=== PATIENT | female | born 1985 | race Caucasian/White ===

== ENCOUNTER → 2018-11-21 | Outpatient (CLI) | payer MEDICAID ==
[2018-11-21 12:48] LABS: BASO # 0.1 10^3/uL (0.0-0.2); BASO % 0.7 % (0.0-1.0); EOS # 0.2 10^3/uL (0.0-0.5); EOS % 2.9 % (0.0-3.0); HEMATOCRIT 33.8 % (36.0-47.0); LYMPH # 2.6 10^3/uL (1.5-5.0); LYMPH % 35.2 % (24.0-44.0); MEAN CORPUSCULAR HEMOGLOBIN 31.6 pg (27.0-33.0); MEAN CORPUSCULAR HGB CONC 35.5 g/dl (32.0-36.5); MEAN CORPUSCULAR VOLUME 88.9 fl (80.0-96.0); MONO # 0.5 10^3/uL (0.0-0.8); MONO % 7.4 % (0.0-5.0); NEUTROPHILS # 3.9 10^3/uL (1.5-8.5); NEUTROPHILS % 53.2 % (36.0-66.0); PLATELET COUNT, AUTOMATED 177 10^3/uL (150-450); WHITE BLOOD COUNT 7.3 10^3/uL (4.0-10.0)
[2018-11-21 12:50] LABS: AMORPHOUS SEDIMENT MODERATE (NEGATIVE); APPEARANCE, URINE CLOUDY (CLEAR); BACTERIA, URINE AUTO NEGATIVE (NEGATIVE); BILIRUBIN, URINE AUTO NEGATIVE (NEGATIVE); BLOOD, URINE BLOOD NEGATIVE (NEGATIVE); COLOR, URINE YELLOW (YELLOW); GLUCOSE, URINE (UA) AUTO NEGATIVE (NEGATIVE); KETONE, URINE AUTO NEGATIVE (NEGATIVE); LEUKOCYTE ESTERASE, URINE AUTO NEGATIVE (NEGATIVE); NITRITE, URINE AUTO NEGATIVE (NEGATIVE); PROTEIN, URINE AUTO NEGATIVE (NEGATIVE); RBC, URINE AUTO 0 /HPF (0-3); SQUAMOUS EPITHELIAL CELL UR AU 1 /HPF (0-6); UROBILINOGEN, URINE AUTO 0.2 mg/dL (0.0-2.0); WBC, URINE AUTO 1 /HPF (0-3)
[2018-11-21 13:35] LABS: ALBUMIN 3.3 GM/DL (3.2-5.2); ALT/SGPT 46 U/L (12-78); BILIRUBIN,TOTAL 0.3 MG/DL (0.2-1.0); BLOOD UREA NITROGEN 9 MG/DL (7-18); CALCIUM LEVEL 8.9 MG/DL (8.5-10.1); CARBON DIOXIDE LEVEL 23 MEQ/L (21-32); CHLORIDE LEVEL 106 MEQ/L (98-107); CREATININE FOR GFR 0.54 MG/DL (0.55-1.30); GLOMERULAR FILTRATION RATE > 60.0 (>60); GLUCOSE, FASTING 73 MG/DL (70-100); POTASSIUM SERUM 4.1 MEQ/L (3.5-5.1); SODIUM LEVEL 138 MEQ/L (136-145); TOTAL PROTEIN 6.5 GM/DL (6.4-8.2)
[2018-11-21 13:47] LABS: HEPATITIS B SURFACE ANTIBODY POSITIVE (POSITIVE)
[2018-11-21 13:57] LABS: HEPATITIS B SURFACE ANTIGEN NEGATIVE (NEGATIVE)
[2018-11-27 14:07] LABS: HEPATITIS A IgG TOTAL Negative (Negative); HEPATITIS C QUANTITATION 2807640 IU/mL (.); HEPATITIS C VIRUS GENOTYPE See Final Results (.)
== END ==
LOC: M LAB 11:34
PROVIDERS: ATTEND Physician Assistant Medical
DX: Z02.2 Encounter for examination for admission to residential institution (principal); B18.2 Chronic viral hepatitis C; B16.9 Acute hepatitis B without delta-agent and without hepatic coma

== ENCOUNTER → 2018-12-01 | Outpatient (REF) | payer OTHER, MEDICAID | LOC: M LAB REF 13:06 | PROVIDERS: ATTEND Advanced Practice Midwife | DX: Z34.82 Encounter for supervision of other normal pregnancy, second trimester (principal) ==

== ENCOUNTER → 2018-12-15 | Outpatient (CLI) | payer MEDICAID, OTHER ==
[2018-12-15 10:35] LABS: ALBUMIN 2.8 GM/DL (3.2-5.2); ALT/SGPT 30 U/L (12-78); BILIRUBIN,TOTAL 0.3 MG/DL (0.2-1.0); BLOOD UREA NITROGEN 13 MG/DL (7-18); CALCIUM LEVEL 8.3 MG/DL (8.5-10.1); CARBON DIOXIDE LEVEL 24 MEQ/L (21-32); CHLORIDE LEVEL 107 MEQ/L (98-107); CREATININE FOR GFR 0.56 MG/DL (0.55-1.30); GLOMERULAR FILTRATION RATE > 60.0 (>60); GLUCOSE, FASTING 107 MG/DL (70-100); POTASSIUM SERUM 3.9 MEQ/L (3.5-5.1); SODIUM LEVEL 139 MEQ/L (136-145); TOTAL PROTEIN 6.1 GM/DL (6.4-8.2)
[2018-12-15 11:12] LABS: HEPATITIS B SURFACE ANTIBODY POSITIVE (POSITIVE)
--- NOTE | 2018-12-15 11:34 | REP ---
OB ULTRASOUND: Real-time sonographic evaluation of the gravid uterus performed. There is a single living intrauterine gestation with an estimated gestational age 21 weeks 5 days with EDC 04/22/2019. Today's measurements indicate appropriate growth. Biometry and Growth: BPD 54 mm = 22 weeks 2 days, 65th percentile HC 191 mm = 21 weeks 2 days, 39th percentile AC 174 mm = 22 weeks 2 days, 64th percentile FL 38 mm = 22 weeks 1 day, 59th percentile HC/AC ratio 1.10 within normal range. Estimated weight 479 grams 60th percentile. SEEN/GROSSLY UNREMARKABLE Lateral ventricles Yes Posterior fossa Yes Upper lip No Four-chamber heart No LVOT No RVOT No Stomach Yes Cord insertion Yes Three vessel cord Yes Kidneys Yes Bladder Yes Spine Yes Cervical length: Closed and measures 4 cm in length. heart rate: 141 beats per minute. position: Variable. Placenta: Posterior and grade 0 with no previa or abruption. Amniotic fluid: Within normal limits. Electronically Signed by Nikko Harvey MD 12/15/2018 11:30 P
[2018-12-26 00:07] LABS: HEPATITIS A IgG TOTAL Negative (Negative); HEPATITIS B CORE ANTIBODY IGG Negative (Negative); HEPATITIS C QUANTITATION 3737770 IU/mL (.); HEPATITIS C VIRUS GENOTYPE See Final Results (.)
== END ==
LOC: M RAD 09:00
PROVIDERS: ATTEND Advanced Practice Midwife
DX: Z34.82 Encounter for supervision of other normal pregnancy, second trimester (principal)

== ENCOUNTER → 2019-01-13 | Outpatient (CLI) | payer MEDICAID, OTHER ==
--- NOTE | 2019-01-13 09:52 | REP ---
Obstetric ultrasound for anatomy follow-up: Comparison is dated 09/27/2018. On the comparison study the facial features, four-chamber view of the heart and cardiac right and left ventricular outflow tracts were suboptimally demonstrated because of position. On the study today the facial profile, upper lip and face are adequately demonstrated and are unremarkable. On the study today the four-chamber view of the heart and cardiac left ventricular outflow tract are adequately demonstrated and unremarkable. The cardiac right ventricular outflow tract is again suboptimally demonstrated because of position. An additional followup study dedicated to this structure might be considered. The remainder of the anatomy indicates that the choroid plexus, cerebellum and spine are suboptimally demonstrated today but were adequately demonstrated previously and were unremarkable previously. There is a single intrauterine gestation in an oblique breech presentation with the head toward the maternal right. There is motion and cardiac activity. The heart rate is 131 beats per minute. The placenta is posterior. There is no placenta previa or abruptio. The placenta is grade zero. The amniotic fluid volume subjectively is normal. The cervix measures 4.0 cm. Gestational age by the ultrasound today is 26 weeks 3 days/FATUMA 04/18/2019. Gestational age by the first ultrasound is 26 weeks 1 day/FATUMA 04/20/2019. Gestational age by LMP is 25-week 6 days/FATUMA 04/22/2011. weight is 994 grams/2 pounds, 3 ounces. This is the 70th percentile for 25 weeks 6 days. Electronically Signed by Nikko Levine MD 01/13/2019 09:43 A
[2019-01-13 11:14] LABS: HEMATOCRIT 32.6 % (36.0-47.0); HEMOGLOBIN 11.2 g/dl (12.0-15.5); MEAN CORPUSCULAR HGB CONC 34.4 g/dl (32.0-36.5); MEAN CORPUSCULAR VOLUME 90.3 fl (80.0-96.0); PLATELET COUNT, AUTOMATED 174 10^3/uL (150-450); RED BLOOD COUNT 3.61 10^6/uL (4.00-5.40); WHITE BLOOD COUNT 8.2 10^3/uL (4.0-10.0)
== END ==
LOC: M RAD 08:30
PROVIDERS: ATTEND Advanced Practice Midwife
DX: O34.219 Maternal care for unspecified type scar from previous cesarean delivery (principal); Z3A.26 26 weeks gestation of pregnancy

== ENCOUNTER → 2019-02-24 | Outpatient (CLI) | payer OTHER ==
[2019-02-24 18:30] LABS: HEMATOCRIT 34.6 % (36.0-47.0); HEMOGLOBIN 11.9 g/dl (12.0-15.5); MEAN CORPUSCULAR HEMOGLOBIN 30.7 pg (27.0-33.0); MEAN CORPUSCULAR HGB CONC 34.4 g/dl (32.0-36.5); MEAN CORPUSCULAR VOLUME 89.4 fl (80.0-96.0); PLATELET COUNT, AUTOMATED 201 10^3/uL (150-450); RED BLOOD COUNT 3.87 10^6/uL (4.00-5.40); WHITE BLOOD COUNT 11.4 10^3/uL (4.0-10.0)
[2019-02-24 19:05] LABS: ALBUMIN 2.6 GM/DL (3.2-5.2); ALT/SGPT 29 U/L (12-78); AMYLASE 32 U/L (25-115); BILIRUBIN,DIRECT < 0.1 MG/DL (0.0-0.2); BILIRUBIN,TOTAL 0.2 MG/DL (0.2-1.0); LIPASE 77 U/L (73-393); TOTAL PROTEIN 6.3 GM/DL (6.4-8.2)
== END ==
LOC: M PLALAB 14:40
PROVIDERS: ATTEND Advanced Practice Midwife
DX: L28.2 Other prurigo (principal)

== ENCOUNTER 2019-03-23 10:45 | Outpatient (CLI) | payer MEDICAID, OTHER ==
[~2019-03-23] VITALS: Ht 160 cm; Wt 105.6 kg
[~2019-03-23 10:45] MED LIST changes: -ACET1TAB55 PO; -ZOFR8TAB24 PO
[2019-03-23] MEDS ORDERED: ZOFR8TAB24 PO (11:03)
[2019-03-23 11:06] VITALS: BP 128/68
[2019-03-23] MEDS ORDERED: BETAMETHASONE SOLUSPAN 6MG/ML INJ 5ML (J0702) IM ONE (11:45)
[2019-03-23 12:36] VITALS: BP 121/73
--- NOTE | 2019-03-23 17:47 | IPNPDOC ---
Text Note Date of Service The patient was seen on 03/23/19. NOTE Subjective: Patient is a 33-year old female who is a 36.1 weeks gestation with an FATUMA of 04/19/19 based off of her LMP and consistent with her first trimester ultrasound. Her has been complicated by 2 prior sections. With her last section she was found to have a uterine window. The plan is to do a repeat section at 37 weeks. The patient was sent over from the office to get Betamethasone injections prior to her scheduled section. Objective: FHR: 120, moderate variability, positive accelerations, no decelerations. Contractions: none. Assessment: IUP at 36.1 weeks gestation, maternal care for prior low transverse section with uterine window, Category I FHR tracing. Plan: Betamethasone injection given. Patient to return in 24 hours for repeat injection. She is to call with any changes including labor signs, decreased movements, leaking of fluid, or other danger signs. VS,Fishbone, I+O VS, Fishbone, I+O Vital Signs Date Time Temp Pulse Resp B/P (MAP) Pulse Ox O2 Delivery O2 Flow Rate FiO2 03/23/19 12:36 97.6 65 18 121/73 (89) DULCE DELACRUZ CNM Mar 23, 2019 17:47
[2019-03-24] MEDS ORDERED: ACET1TAB55 PO (12:34)
== END 2019-03-23 12:35 | disposition home or self-care (01) ==
LOC: M LDO 10:45
PROVIDERS: ATTEND Advanced Practice Midwife
DX: O34.211 Maternal care for low transverse scar from previous cesarean delivery (principal); Z3A.36 36 weeks gestation of pregnancy
CPT/HCPCS: 59025; 96372; J0702

== ENCOUNTER → 2019-03-23 | Outpatient (REF) | payer MEDICAID, OTHER ==
[~2019-03-23] MED LIST: ACET1TAB55 PO; BUPR2SUB SL; BUPR7.5D TD; BUPR8SUB SL; MIRA3350 PO; PRENTAB55 PO; PROZ20CA11 PO; SENN8.6T58 PO; ZOFR8TAB24 PO
== END ==
LOC: M SFHCWAGY 13:32
PROVIDERS: ATTEND Obstetrics & Gynecology
DX: Z36.85 Encounter for antenatal screening for Streptococcus B (principal); Z3A.36 36 weeks gestation of pregnancy

== ENCOUNTER 2019-03-24 11:57 | Outpatient (CLI) | payer MEDICAID, OTHER ==
[~2019-03-24] VITALS: Ht 160 cm; Wt 102.3 kg
[~2019-03-24 11:57] MED LIST changes: +ZOFR8TAB24 PO
[2019-03-24 12:26] VITALS: BP 135/68
[2019-03-24] MEDS ORDERED: BETAMETHASONE SOLUSPAN 6MG/ML INJ 5ML (J0702) IM ONE (12:30)
[2019-03-24] MEDS ORDERED: ACET1TAB55 PO (12:34)
[2019-03-24 13:11] VITALS: BP 131/60
== END 2019-03-24 13:00 | disposition home or self-care (01) ==
LOC: M LDO 11:57
PROVIDERS: ATTEND Obstetrics & Gynecology
DX: O34.211 Maternal care for low transverse scar from previous cesarean delivery (principal); Z3A.36 36 weeks gestation of pregnancy
CPT/HCPCS: 96372; J0702

== ENCOUNTER 2019-03-30 05:33 | Inpatient (IN) | payer MEDICAID ==
[2019-03-30] VITALS (8 sets, daily range): BP systolic 104–134; BP diastolic 55–90
[~2019-03-30] VITALS: Ht 160 cm; Wt 101.9 kg
[~2019-03-30 05:33] MED LIST changes: +ACET1TAB55 PO
[2019-03-30] MEDS ORDERED: LR 1,000 ML IV ONE (06:00)
[2019-03-30] MEDS ORDERED: LR 1,000 ML IV SCH (06:00)
[2019-03-30] MEDS ORDERED: BICITRA 30ML SOLN UDC PO ONE (06:00)
[2019-03-30] MEDS ORDERED: ceFAZolin SOD 2 GM in IV 1 EA IV ONE (06:00)
[2019-03-30 06:56] LABS: HEMATOCRIT 41.1 % (36.0-47.0); HEMOGLOBIN 13.9 g/dl (12.0-15.5); MEAN CORPUSCULAR HEMOGLOBIN 30.2 pg (27.0-33.0); MEAN CORPUSCULAR HGB CONC 33.8 g/dl (32.0-36.5); MEAN CORPUSCULAR VOLUME 89.3 fl (80.0-96.0); PLATELET COUNT, AUTOMATED 176 10^3/uL (150-450); WHITE BLOOD COUNT 12.1 10^3/uL (4.0-10.0)
[2019-03-30] MEDS ORDERED: NALOXONE INJ 0.4 MG/1 ML VIAL (J2310) IV PRN ×2 (10:11)
[2019-03-30] MEDS ORDERED: NALBUPHINE HCL 10 MG/ML AMP (J2300) IV PRN (10:11)
[2019-03-30] MEDS ORDERED: diphenhydrAMINE INJ 50MG/ML VIAL (J1200) IV PRN (10:11)
[2019-03-30] MEDS ORDERED: MORPHINE PRES-FREE INJ 10 MG/10 ML VIAL (J2274) As Ordered ONE (10:11)
[2019-03-30] MEDS ORDERED: METOCLOPRAMIDE INJ 10MG/2ML VIAL (J2765) IV PRN ×2 (10:11→12:30)
[2019-03-30] MEDS ORDERED: ONDANSETRON 4MG/2ML VIAL (J2405) IV PRN ×2 (10:11→12:30)
[2019-03-30] MEDS ORDERED: PHENYLephrine HCL 500 MCG/5 ML (100MCG/ML) SYRINGE (J2370) As Ordered ONE (10:15)
[2019-03-30] MEDS ORDERED: ONDANSETRON 4MG/2ML VIAL (J2405) As Ordered ONE (10:17)
[2019-03-30] MEDS ORDERED: METOCLOPRAMIDE INJ 10MG/2ML VIAL (J2765) As Ordered ONE (10:17)
[2019-03-30] MEDS ORDERED: OXYTOCIN INJ 10 UNITS/ML VIAL (J2590) As Ordered ONE ×3 (10:17→10:53)
[2019-03-30] MEDS ORDERED: KETOROLAC 60 MG/2 ML VIAL (J1885) As Ordered ONE (10:17)
[2019-03-30] MEDS ORDERED: ePHEDrine SULFATE 25 MG/5 ML(5MG/ML) SYRINGE As Ordered ONE (10:23)
[2019-03-30] MEDS ORDERED: PERCOCET PO (11:38)
[2019-03-30] MEDS ORDERED: DOCU100C16 PO (11:38)
[2019-03-30] MEDS ORDERED: IBUP80TA PO (11:38)
[2019-03-30] MEDS ORDERED: PERCOCET 5MG/325MG TAB PO PRN ×2 (11:45→12:30)
[2019-03-30] MEDS ORDERED: ONDANSETRON 4 MG TAB (S0181) PO PRN (11:45)
[2019-03-30] MEDS ORDERED: PROMETHAZINE 25 MG TAB PO PRN (11:45)
[2019-03-30] MEDS ORDERED: RHOGAM 300 MCG (1500 IU) INJ (J2790) IM SCH (12:00)
[2019-03-30] MEDS ORDERED: OXYTOCIN DRIP 30 UNITS in IV 1 EA IV SCH (12:00)
[2019-03-30] MEDS ORDERED: MEASLES,MUMPS,RUBELLA VACCINE INJ (MMR-II) (90707) SC SCH (12:00)
[2019-03-30] MEDS ORDERED: MEPERIDINE INJ 25 MG/ML VIAL (J2175) IV PRN (12:30)
[2019-03-30] MEDS ORDERED: fentaNYL 100 MCG/2 ML INJECTION (J3010) IV PRN (12:30)
[2019-03-30] MEDS ORDERED: OXYTOCIN 30 UNITS IN 0.9% NaCl 500ML IV BAG (J2590) As Ordered ONE (13:04)
[2019-03-30] MEDS: BUPRENORPHINE 8 MG PO SCH (14:16)
[2019-03-30] MEDS: PERCOCET 5MG/325MG TAB PO PRN (15:17)
[2019-03-30] MEDS ORDERED: BUPRENORPHINE 2 MG PO SCH (17:00)
[2019-03-30] MEDS: KETOROLAC 30 MG/ML VIAL (J1885) IV SCH ×2 (17:39→23:00)
[2019-03-30] MEDS: BUPRENORPHINE 2 MG PO SCH (17:40)
[2019-03-30] MEDS: LR 1,000 ML IV SCH ×2 (17:40→20:28)
[2019-03-30] MEDS: DOCUSATE SODIUM 100 MG CAP PO SCH (20:48)
[2019-03-31] MEDS: IBUPROFEN 800 MG TAB PO SCH ×3 (01:20→16:56)
[2019-03-31 02:13] VITALS: BP 96/54
[2019-03-31 05:25] VITALS: BP 106/56
[2019-03-31] MEDS: BUPRENORPHINE 8 MG PO SCH ×2 (05:27→12:40)
[2019-03-31 06:59] LABS: HEMATOCRIT 36.6 % (36.0-47.0); HEMOGLOBIN 12.6 g/dl (12.0-15.5); MEAN CORPUSCULAR HEMOGLOBIN 30.6 pg (27.0-33.0); MEAN CORPUSCULAR HGB CONC 34.4 g/dl (32.0-36.5); MEAN CORPUSCULAR VOLUME 88.8 fl (80.0-96.0); PLATELET COUNT, AUTOMATED 176 10^3/uL (150-450); RED BLOOD COUNT 4.12 10^6/uL (4.00-5.40); WHITE BLOOD COUNT 13.2 10^3/uL (4.0-10.0)
--- NOTE | 2019-03-31 07:21 | IPNPDOC ---
Progress Note Date of Service: Mar 31, 2019 Day#: 1 Progress Note SUBJECT: She has been ambulating well and tolerating regular diet. Chahal removed last night and patient has not voided yet. Breast feeding without issue and supplementing formula. Her saline lock infiltrated last night and not replaced due to multiple pokes that it took to get her initial IV> OBJECTIVE: VITAL SIGNS: Within normal limits, afebrile. Alert and oriented times three. Breath sounds clear to auscultation. Heart rate: Regular rate and rhythm, no murmurs, rubs or gallops. Abdomen: Fundus firm at U. Minimal lochia. ASSESSMENT: Day 1 postoperative PLAN: 1. Continue supportive nursing care and breast feeding support. 2. Patient may shower today. VS, I&O, 24H, Fishbone Vital Signs/I&O Vital Signs Date Time Temp Pulse Resp B/P (MAP) Pulse Ox O2 Delivery O2 Flow Rate FiO2 03/31/19 05:25 98.1 66 18 106/56 (73) 97 Room Air I&O- Last 24 Hours up to 6 AM 03/31/19 06:00 Intake Total 3460 ml Output Total 3050 ml Balance 410 ml Laboratory Data 24H LABS Laboratory Tests 2 03/31/19 06:31: Nucleated Red Blood Cells % (auto) 0.0 CBC/BMP Laboratory Tests 03/31/19 06:31 DULCE DELACRUZ CNM Mar 31, 2019 07:21
[2019-03-31] MEDS: DOCUSATE SODIUM 100 MG CAP PO SCH ×2 (07:41→19:48)
[2019-03-31] MEDS: PRENATAL VITAMINS CHEWABLE TABLET PO SCH (07:41)
[2019-03-31 10:00] VITALS: BP 111/57
[2019-03-31] MEDS: FLUoxetine 10 MG CAP PO SCH (11:23)
[2019-03-31] MEDS: NICOTINE POLACRILEX 2 MG GUM PO PRN ×3 (11:53→21:16)
[2019-03-31 14:00] VITALS: BP 120/61
[2019-03-31] MEDS: BUPRENORPHINE 2 MG PO SCH (16:55)
[2019-03-31 17:57] VITALS: BP 117/58
[2019-03-31] MEDS: PERCOCET 5MG/325MG TAB PO PRN (19:49)
[2019-03-31 22:06] VITALS: BP 109/56
[2019-04-01 02:30] VITALS: BP 123/53
[2019-04-01] MEDS: IBUPROFEN 800 MG TAB PO SCH ×3 (02:42→17:21)
[2019-04-01] MEDS: BUPRENORPHINE 8 MG PO SCH ×2 (06:18→12:47)
[2019-04-01 06:31] VITALS: BP 106/68
[2019-04-01] MEDS: NICOTINE POLACRILEX 2 MG GUM PO PRN ×4 (06:47→18:34)
[2019-04-01] MEDS: FLUoxetine 10 MG CAP PO SCH (08:06)
[2019-04-01] MEDS: DOCUSATE SODIUM 100 MG CAP PO SCH ×2 (08:06→20:04)
[2019-04-01] MEDS: PRENATAL VITAMINS CHEWABLE TABLET PO SCH (08:06)
[2019-04-01] MEDS: ACETAMINOPHEN 500 MG TAB PO PRN ×2 (08:22→20:04)
[2019-04-01 10:10] VITALS: BP 126/58
--- NOTE | 2019-04-01 15:20 | DSES ---
DATE OF ADMISSION: 03/30/2019 DATE OF DISCHARGE: 33-year-old female at 37 weeks gestation, presents for elective repeat section and bilateral tubal ligation. She has a history of bicornuate uterus. HOSPITAL COURSE: The patient was admitted at 37 weeks after completing steroids. She underwent repeat section and bilateral tubal ligation, 6 pounds 6 ounce infant with no complications. Her postoperative course was unremarkable. She had adequate return of bowel and bladder function. Postoperative hemoglobin is 12.6 g/dL. She was deemed stable for discharge on postoperative day #2. ADMISSION DIAGNOSES: 1. at 37 weeks. 2. Prior section. DISCHARGE DIAGNOSES: 1. Repeat section. 2. Bilateral tubal ligation. DISPOSITION: The patient will followup with Dr. Graham in 2 weeks. Instructions reviewed.
[2019-04-01] MEDS: BUPRENORPHINE 2 MG PO SCH (17:21)
[2019-04-01 17:44] VITALS: BP 106/55
[2019-04-02] MEDS: IBUPROFEN 800 MG TAB PO SCH ×2 (02:07→09:27)
[2019-04-02] MEDS: NICOTINE POLACRILEX 2 MG GUM PO PRN ×3 (02:11→09:25)
[2019-04-02] MEDS: ACETAMINOPHEN 500 MG TAB PO PRN (05:31)
[2019-04-02] MEDS: BUPRENORPHINE 8 MG PO SCH ×2 (05:32→12:45)
[2019-04-02 05:48] VITALS: BP 100/54
[2019-04-02] MEDS: PRENATAL VITAMINS CHEWABLE TABLET PO SCH (09:25)
[2019-04-02] MEDS: DOCUSATE SODIUM 100 MG CAP PO SCH (09:25)
[2019-04-02] MEDS: FLUoxetine 10 MG CAP PO SCH (09:25)
== END 2019-04-02 16:22 | disposition home or self-care (01) | DRG 540 ==
LOC: M LDI 05:33 → M OBS 13:46
PROVIDERS: ADMIT Obstetrics & Gynecology; ATTEND Obstetrics & Gynecology
PROC: 0UB70ZZ Excision of Bilateral Fallopian Tubes, Open Approach (ICD-10-PCS; 2019-03-30)
PROC: 10D00Z1 Extraction of Products of Conception, Low, Open Approach (ICD-10-PCS; principal; 2019-03-30 07:30)
DX: O34.211 Maternal care for low transverse scar from previous cesarean delivery (principal); Z3A.37 37 weeks gestation of pregnancy; Z37.0 Single live birth; Z30.2 Encounter for sterilization